=== PATIENT | female | born 1945 | race Caucasian/White ===

== ENCOUNTER 2019-05-15 | Emergency (ER) | payer MEDICARE, OTHER ==
[2019-05-15] MEDS ORDERED: PRILOSEC20 MG/CAP PO (08:54)
[2019-05-15] MEDS ORDERED: VALIUM2 MG PO (08:55)
[2019-05-15 09:20] LABS: HEMATOCRIT 40.4 % (37.0-47.0); HEMOGLOBIN 12.9 g/dl (12.0-16.0); IMMATURE GRANULOCYTES 0.2 % (0.0-5.0); MEAN CELL VOLUME 91.8 fL CALC (80.0-100.0); MEAN CORPUSCULAR HGB 29.3 pG CALC (26.0-32.0); MEAN CORPUSCULAR HGB CONC 31.9 g/L CALC (32.0-36.0); NEUT# 2.9 thou/uL (2.00-7.15); RED BLOOD COUNT 4.4 mill/uL (4.20-5.60); RED CELL DISTRI WIDTH 13.2 % (11.5-15.5)
[2019-05-15 09:34] LABS: ALBUMIN 4.2 g/dL (3.2-5.0); ALKALINE PHOSPHATASE 81 u/l (38-126); ANION GAP 14 (6-22 (CALC)); BUN 14 mg/dL (8-23); BUN/CREATININE RATIO 19 (12-20 (CALC)); CARBON DIOXIDE 24 mmol/l (22-30); CHLORIDE 103 mmol/l (95-108); CREATININE 0.8 mg/dL (0.5-1.0); GFR > 60 ML/MIN (>=60 (CALC)); GFR FOR AFR.AMER. > 60 ML/MIN (>=60 (CALC)); POTASSIUM 3.9 mmol/l (3.5-5.1); SGOT/AST 21 u/l (9-36); SODIUM 138 mmol/l (137-146); TOTAL PROTEIN 7.2 g/dL (6.3-8.2)
[2019-05-15 09:36] LABS: BILIRUBIN, TOTAL 0.3 mg/dL (0.0-1.4)
[2019-05-15] MEDS ORDERED: DOXY-CAPS100 MG PO (09:56)
== END 2019-05-15 10:10 | disposition home or self-care (01) ==
PROVIDERS: Family Medicine
DX: J40 Bronchitis, not specified as acute or chronic (principal); R06.02 Shortness of breath

== ENCOUNTER 2021-10-26 15:16 | Emergency (ER) | payer MEDICARE, OTHER ==
[~2021-10-26] VITALS: Ht 154.9 cm; Wt 52.3 kg
[~2021-10-26 15:16] MED LIST: DOXY-CAPS100 MG PO; PRILOSEC20 MG/CAP PO; VALIUM2 MG PO
[2021-10-26 15:22] VITALS: BP 160/79
[2021-10-26 15:30] VITALS: BP 146/78
[2021-10-26] MEDS ORDERED: OFLOXACIN0.3 % OS (15:44)
[2021-10-26 17:09] VITALS: BP 146/78
== END 2021-10-26 17:10 | disposition home or self-care (01) ==
LOC: ED 15:16
DX: S05.02XA Injury of conjunctiva and corneal abrasion without foreign body, left eye, initial encounter (principal); W20.8XXA Other cause of strike by thrown, projected or falling object, initial encounter